=== PATIENT | male | born 1970 | race Caucasian/White ===

== ENCOUNTER 2016-10-10 21:45 | Emergency (ER) | payer OTHER ==
[~2016-10-10] VITALS: Ht 185.4 cm; Wt 99.0 kg
[~2016-10-10 21:45] MED LIST: DEPA500T3 PO; IBUP800T23 PO; LEVE750T8 PO
[2016-10-10 21:47] VITALS: BP 122/74; PULSE 71; RESP 16; TEMP 97.8; O2SAT 98
[2016-10-11 00:03] VITALS: BP 129/75; PULSE 56; RESP 20; O2SAT 98
[2016-10-11] MEDS ORDERED: DEPA500T3 PO (00:11)
[2016-10-11] MEDS ORDERED: KEPP750T PO (00:11)
[2016-10-11] MEDS ORDERED: KETOROLAC TROMETHAMINE 30 MG/ML (IVP) VIAL IV PUSH ONE (00:15)
[2016-10-11] MEDS ORDERED: SODIUM CHLORIDE 0.9% FLUSH 10 ML FLUSH IVF PRN (00:15)
[2016-10-11 00:26] LABS: AUTOMATED NEUTROPHIL # 3.7 TH/MM3 (1.8-7.7); BASOPHIL # 0.1 TH/MM3 (0-0.2); EOSINOPHIL # 0.3 TH/MM3 (0-0.4); EOSINOPHIL % 3.6 % (0.0-4.0); HEMO FLAGS DIFF FINAL; LYMPH % 37.1 % (9.0-44.0); LYMPHOCYTE # 2.8 TH/MM3 (1.0-4.8); MEAN CELL VOLUME 85.8 FL (80.0-100.0); MEAN CORPUSCULAR HGB CONC 33.8 % (32.0-36.0); MONO % 9.7 % (0.0-8.0); NEUT % 48.6 % (16.0-70.0); PLATELET COUNT 192 TH/MM3 (150-450); RED BLOOD COUNT 4.78 MIL/MM3 (4.50-5.90); RED CELL DISTRIBUTION WIDTH 13.9 % (11.6-17.2); WHITE BLOOD COUNT 7.6 TH/MM3 (4.0-11.0)
--- NOTE | 2016-10-11 00:33 | RADRPT ---
EXAM DATE/TIME: 10/11/2016 00:09 [place] COMPARISON: No previous studies available for comparison. INDICATIONS : Chest, back, and body pain. MEDICAL HISTORY : None. SURGICAL HISTORY : None. ENCOUNTER: Initial ACUITY: 1 day PAIN SCORE: 8/10 LOCATION: Bilateral chest back FINDINGS: A single view of the chest demonstrates the lungs to be symmetrically aerated without evidence of mas s, infiltrate or effusion. The cardiomediastinal contours are unremarkable. Osseous structures are intact. CONCLUSION: No acute disease. Terrence Ogden Jr., MD on October 11, 2016 at 0:31 Board Certified Radiologist. This report was verified electronically.
--- NOTE | 2016-10-11 00:39 | PD ---
HPI Chief Complaint: Chest Pain Time Seen by Provider: 23:59 Travel History International Travel<30 days: No Contact w/Intl Traveler<30days: No Traveled to known affect area: No History of Present Illness HPI 45-year-old male with history of epilepsy here with complaint of chest pain. For the last 2 days patient has had chest pain that radiates through to the back , this is sharp and made worse with movement. Patient denies any associated shortness of breath, nausea, vomiting, lightheadedness. He also notes pain to the right wrist. To his knowledge she did not injure the wrist at all and has not noticed any bruising. He denies any history of cardiac disease. 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 PFSH Past Medical History Hx Anticoagulant Therapy: No Depression: Yes Cardiovascular Problems: No Diabetes: No Diminished Hearing: No Hypertension: Yes Neurologic: Yes Psychiatric: Yes Respiratory: No Integumentary: Yes (MULTIPLE SKIN ABSCESSES) Migraines: Yes Radiation Therapy: No Seizures: Yes (LAST 01/16/16) Past Surgical History Other Surgery: Yes (CYST REMOVED BEHIND EAR) Social History Alcohol Use: Yes (ETOH ABUSE) Tobacco Use: Yes (1PPD) Substance Use: Yes (MARIJUANA) Allergies-Medications (Allergen,Severity, Reaction): Coded Allergies: No Known Allergies (Unverified , 10/11/16) Reported Meds & Prescriptions Reported Meds & Active Scripts Active Reported Depakote ER (Divalproex Sodium) 500 Mg Marcela 500 Mg PO BID Keppra (Levetiracetam) 750 Mg Tab 750 Mg PO BID Review of Systems Except as stated in HPI: all other systems reviewed are Neg Physical Exam Narrative GENERAL: Middle-aged male in no acute distress SKIN: Focused skin assessment warm/dry. HEAD: Normocephalic. EYES: No scleral icterus. No injection or drainage. ENT: No nasal bleeding or discharge. Mucous membranes pink and moist. NECK: Supple CARDIOVASCULAR: Regular rate and rhythm. No murmur appreciated. Reproducible tenderness to palpation of the right sternal margin. RESPIRATORY: No accessory muscle use. Clear to auscultation. Breath sounds equal bilaterally. GASTROINTESTINAL: Abdomen soft, non-tender, nondistended. Hepatic and splenic margins not palpable. MUSCULOSKELETAL: No obvious deformities. No clubbing. No cyanosis. No edema. No midline tenderness to palpation of the spine. No reproducible tenderness to palpation of the back. Wrist is unremarkable without swelling, erythema, ecchymosis. Full pain-free range of motion. Good distal sensation and pulses. NEUROLOGICAL: Awake and alert. Motor grossly within normal limits. Normal speech. PSYCHIATRIC: Appropriate mood and affect; insight and judgment normal. Data Data Last Documented VS Vital Signs Date Time Temp Pulse Resp B/P Pulse Ox O2 Delivery O2 Flow Rate FiO2 10/11/16 00:04 56 20 98 Room Air 10/11/16 00:03 129/75 10/10/16 21:47 97.8 Orders Electrocardiogram (10/11/16 00:04) Basic Metabolic Panel (Bmp) (10/11/16 00:04) Ckmb (Isoenzyme) Profile (10/11/16 00:04) Complete Blood Count With Diff (10/11/16 00:04) D-Dimer (10/11/16 00:04) Magnesium (Mg) (10/11/16 00:04) Prothrombin Time / Inr (Pt) (10/11/16 00:04) Act Partial Throm Time (Ptt) (10/11/16 00:04) Troponin I (10/11/16 00:04) Chest, Single Ap (10/11/16 00:04) Ecg Monitoring (10/11/16 00:04) Iv Access Insert/Monitor (10/11/16 00:04) Oximetry (10/11/16 00:04) Sodium Chloride 0.9% Flush (Ns Flush) (10/11/16:15) Ketorolac Inj (Toradol Inj) (10/11/16 00:15) CKMB (10/11/16:15) CKMB% (10/11/16 00:15) Labs Laboratory Tests Test 10/11/16 00:15 White Blood Count 7.6 TH/MM3 Red Blood Count 4.78 MIL/MM3 Hemoglobin 13.9 GM/DL Hematocrit 41.0 % Mean Corpuscular Volume 85.8 FL Mean Corpuscular Hemoglobin 29.0 PG Mean Corpuscular Hemoglobin 33.8 % Concent Red Cell Distribution Width 13.9 % Platelet Count 192 TH/MM3 Mean Platelet Volume 8.5 FL Neutrophils (%) (Auto) 48.6 % Lymphocytes (%) (Auto) 37.1 % Monocytes (%) (Auto) 9.7 % Eosinophils (%) (Auto) 3.6 % Basophils (%) (Auto) 1.0 % Neutrophils # (Auto) 3.7 TH/MM3 Lymphocytes # (Auto) 2.8 TH/MM3 Monocytes # (Auto) 0.7 TH/MM3 Eosinophils # (Auto) 0.3 TH/MM3 Basophils # (Auto) 0.1 TH/MM3 CBC Comment DIFF FINAL Differential Comment Prothrombin Time 10.2 SEC Prothromb Time International 0.9 RATIO Ratio Activated Partial 26.8 SEC Thromboplast Time D-Dimer Quantitative (PE/DVT) 0.36 MG/L FEU Sodium Level 141 MEQ/L Potassium Level 4.3 MEQ/L Chloride Level 107 MEQ/L Carbon Dioxide Level 30.4 MEQ/L Anion Gap 4 MEQ/L Blood Urea Nitrogen 12 MG/DL Creatinine 0.75 MG/DL Estimat Glomerular Filtration 113 ML/MIN Rate Random Glucose 80 MG/DL Calcium Level 9.3 MG/DL Magnesium Level 1.8 MG/DL Total Creatine Kinase 154 U/L Creatine Kinase MB 1.1 NG/ML Troponin I LESS THAN 0.02 NG/ML MDM Medical Decision Making Medical Screen Exam Complete: Yes Emergency Medical Condition: Yes Medical Record Reviewed: Yes Differential Diagnosis 45-year-old male here with complaint of sharp chest pain radiating to the back times one day. Pain is point tenderness and reproducible on exam highly suspicious for musculoskeletal etiology. Differential includes PE, ACS, atypical chest pain, GERD and less likely dissection. Narrative Course Patient placed on monitor, IV established and blood obtained. A twelve-lead EKG shows sinus bradycardia without notable ST abnormalities, normal intervals. Patient given 30 mg Toradol. Portal chest x-ray obtained that by my read shows no acute abnormalities. CBC, BMP, magnesium, CK-MB, troponin, d-dimer were unremarkable. Symptoms most consistent with musculoskeletal etiology. Patient felt improved after the above and will be discharged home. Diagnosis Primary Impression: Atypical chest pain Referrals: Primary Care Physician as needed Additional Instructions: Tylenol, ibuprofen as he for pain. EKG, chest x-ray and blood work today were normal. Med/Other Pt SpecificInfo: No Change to Meds Disposition: 01 DISCHARGE HOME Condition: Stable Paulette Brand MD Oct 11, 2016 00:39
[2016-10-11 00:46] LABS: APTT (PATIENT) 26.8 SEC (24.3-30.1); INTERNATIONAL NORMALIZED RATIO 0.9 RATIO; PROTHROMBIN TIME - PATIENT 10.2 SEC (9.8-11.6)
[2016-10-11 00:48] LABS: CREATINE KINASE 154 U/L (39-308)
[2016-10-11 01:01] LABS: ANION GAP 4 MEQ/L (5-15); BICARBONATE 30.4 MEQ/L (21.0-32.0); BLOOD UREA NITROGEN 12 MG/DL (7-18); CHLORIDE 107 MEQ/L (98-107); CKMB 1.1 NG/ML (0.5-3.6); GLOMERULAR FILTRATION RATE 113 ML/MIN (>89); MAGNESIUM 1.8 MG/DL (1.5-2.5); POTASSIUM 4.3 MEQ/L (3.5-5.1); SODIUM (NA) 141 MEQ/L (136-145)
[2016-10-11 02:18] VITALS: BP 132/72; PULSE 57; RESP 15; O2SAT 98
--- NOTE | 2016-10-11 10:34 | EKG ---
Date Performed: 10/10/2016 Time Performed: 23:46:34 PTAGE: 45 years EKG: SINUS BRADYCARDIA BORDERLINE ECG PREVIOUS TRACING : 09/22/2014 20.50 DOCTOR: Noe Esposito Interpretating Date/Time 10/11/2016 10:32:52
== END 2016-10-11 02:25 | disposition home or self-care (01) ==
LOC: NEPE 21:45
DX: R07.89 Other chest pain (principal); M25.531 Pain in right wrist; R00.1 Bradycardia, unspecified
CPT/HCPCS: 71010; 80048; 82550; 82552; 83735; 84484; 85025; 85379; 85610; 85730; 93005; 96374; 99285; J1885